=== PATIENT | male | born 1955 | race African-American/Black ===

== ENCOUNTER 2019-07-12 07:00 | Outpatient (CLI) | payer OTHER ==
[~2019-07-12 07:00] MED LIST: ASA81 MG PO; CALAN80 MG; CARDIZEM60 MG PO; CARDURA XL4 MG PO; CATAPRES0.3 MG; HYDRALAZINE HCL50 MG PO; LASIX40 MG PO; LISINOPRIL40 MG; METFORMIN HCL500 MG PO; TOPROL XL25 MG PO
== END 2019-07-12 10:00 | disposition home or self-care (01) ==
LOC: LAB 07:00 → U 07:00 → SURG 07:00 → EDSTATUS 08:00 → SURG 08:00 → LAB 10:00
DX: R10.84 Generalized abdominal pain (principal); Z01.812 Encounter for preprocedural laboratory examination

== ENCOUNTER 2019-07-19 06:36 | Outpatient (CLI) | payer OTHER | END 2019-07-19 07:35 | disposition home or self-care (01) | LOC: LAB 06:36 | DX: D50.8 Other iron deficiency anemias (principal); I10 Essential (primary) hypertension; M16.11 Unilateral primary osteoarthritis, right hip; D69.49 Other primary thrombocytopenia; D69.6 Thrombocytopenia, unspecified; D61.1 Drug-induced aplastic anemia; D68.8 Other specified coagulation defects; E11.9 Type 2 diabetes mellitus without complications; I48.2 Chronic atrial fibrillation; D51.8 Other vitamin B12 deficiency anemias ==

== ENCOUNTER 2019-08-16 07:09 | Outpatient (CLI) | payer OTHER | END 2019-08-16 07:20 | disposition home or self-care (01) | LOC: NUCLEAR 07:09 | DX: I20.9 Angina pectoris, unspecified (principal) | CPT/HCPCS: 78452; 93017; A9500; J0153 ==

== ENCOUNTER 2019-11-14 06:22 | Outpatient (CLI) | payer OTHER | END 2019-11-14 06:30 | disposition home or self-care (01) | LOC: LAB 06:22 | DX: D50.8 Other iron deficiency anemias (principal); I10 Essential (primary) hypertension; M16.11 Unilateral primary osteoarthritis, right hip; D69.49 Other primary thrombocytopenia; D69.6 Thrombocytopenia, unspecified; D51.1 Vitamin B12 deficiency anemia due to selective vitamin B12 malabsorption with proteinuria; D68.32 Hemorrhagic disorder due to extrinsic circulating anticoagulants; E11.9 Type 2 diabetes mellitus without complications; I48.20 Chronic atrial fibrillation, unspecified; D51.8 Other vitamin B12 deficiency anemias; D68.8 Other specified coagulation defects ==

== ENCOUNTER 2019-11-24 11:23 | Inpatient (IN) | payer OTHER ==
[~2019-11-24] VITALS: Ht 190.5 cm; Wt 117.0 kg
[2019-12-14] MEDS ORDERED: LOVENOX100 MG/1 M SUBCUTANEO (13:53)
[2019-12-20] MEDS ORDERED: NORVASC2.5 M1 (09:14)
[2019-12-22] MEDS ORDERED: XARELTO20 MG PO (14:15)
[2019-12-22] MEDS ORDERED: OXYC1TAB9 PO (14:16)
== END 2019-12-23 17:46 | DRG 470 ==
LOC: SURG 12-20 07:00 → SURH 12-20 07:25 → O/R 12-20 07:25 → SURG 12-20 10:15 → SURH 12-20 17:37
PROVIDERS: ADMIT Orthopaedic Surgery
PROC: 0SR90J9 Replacement of Right Hip Joint with Synthetic Substitute, Cemented, Open Approach (ICD-10-PCS; principal; 2019-12-20 10:15)
DX: M16.11 Unilateral primary osteoarthritis, right hip (principal); D62 Acute posthemorrhagic anemia; I10 Essential (primary) hypertension; I48.0 Paroxysmal atrial fibrillation; E78.2 Mixed hyperlipidemia; Z79.01 Long term (current) use of anticoagulants

== ENCOUNTER 2019-12-02 06:24 | Outpatient (CLI) | payer OTHER | END 2019-12-02 15:00 | disposition home or self-care (01) | LOC: LAB 06:24 | DX: M16.11 Unilateral primary osteoarthritis, right hip (principal); D69.49 Other primary thrombocytopenia; D69.8 Other specified hemorrhagic conditions; D51.1 Vitamin B12 deficiency anemia due to selective vitamin B12 malabsorption with proteinuria; D68.32 Hemorrhagic disorder due to extrinsic circulating anticoagulants; D68.8 Other specified coagulation defects; E11.9 Type 2 diabetes mellitus without complications; I10 Essential (primary) hypertension; I48.21 Permanent atrial fibrillation ==

== ENCOUNTER 2019-12-05 07:38 | Outpatient (CLI) | payer OTHER | END 2019-12-05 07:48 | disposition home or self-care (01) | LOC: LAB 07:38 | DX: D68.8 Other specified coagulation defects (principal); E78.2 Mixed hyperlipidemia; N39.0 Urinary tract infection, site not specified; R07.89 Other chest pain; Z01.818 Encounter for other preprocedural examination; Z01.811 Encounter for preprocedural respiratory examination ==